=== PATIENT | female | born 1965 | race Caucasian/White ===

== ENCOUNTER 2017-12-26 17:56 | Emergency (ER) | payer OTHER ==
[~2017-12-26] VITALS: Ht 175.3 cm; Wt 101.6 kg
[2017-12-26 18:08] VITALS: Ht 175.3 cm; Wt 101.6 kg
[2017-12-26 18:52] LABS: microscopic required? NO
[2017-12-26 19:04] LABS: UA SPECIFIC GRAVITY 1.015 (1.005-1.035); urine erythrocyte NEGATIVE (NEGATIVE)
[2017-12-26 19:19] LABS: BASOPHIL % 0.7 % (0-2); PLATELET COUNT 269 x10^3mcL (130-400); RED CELL DISTRIBUTION WIDTH 13.7 % (11.5-14.5)
[2017-12-26 19:48] LABS: CALCIUM 8.7 mg/dL (8.5-10.1); CARBON DIOXIDE 30.5 mmol/L (21-32); CREATININE SERUM 1.2 mg/dL (0.6-1.0); POTASSIUM SERUM 3.5 mmol/L (3.5-5.1)
[2017-12-26 19:53] LABS: BILIRUBIN TOTAL 0.62 mg/dL (0.20-1.00); CHOLESTEROL/HDL RATIO 2.9; TOTAL PROTEIN, SERUM 7.7 g/dL (6.4-8.2)
[2017-12-26 19:55] LABS: T3 TOTAL 1.31 ng/mL
[2017-12-26 19:57] LABS: FREE T4 1.05 ng/dL (0.76-1.46); FREE THYROXINE INDEX 2.9 ug/dL (1.4-4.5); T4(THYROXINE) 9.2 ug/dL (4.7-13.3)
[2017-12-26 21:57] VITALS: BP 145/85
== END 2017-12-26 21:57 | disposition home or self-care (01) ==
LOC: ED 17:56
PROVIDERS: Specialist
DX: I10 Essential (primary) hypertension (principal); M54.2 Cervicalgia; M54.6 Pain in thoracic spine; F43.9 Reaction to severe stress, unspecified; Z88.1 Allergy status to other antibiotic agents
CPT/HCPCS: 83880; 84439; J3490; J7030; Q0092; Q9967

== ENCOUNTER 2018-05-14 17:12 | Emergency (ER) | payer OTHER ==
[~2018-05-14] VITALS: Ht 175.3 cm; Wt 105.7 kg
[2018-05-14 18:43] VITALS: BP 142/96
== END 2018-05-14 18:43 | disposition home or self-care (01) ==
LOC: ED 17:12
DX: F07.81 Postconcussional syndrome (principal); S20.219A Contusion of unspecified front wall of thorax, initial encounter; M54.6 Pain in thoracic spine; Y04.0XXA Assault by unarmed brawl or fight, initial encounter; Y93.89 Activity, other specified; Y92.89 Other specified places as the place of occurrence of the external cause; Y99.8 Other external cause status
CPT/HCPCS: J1885; Q0092; Q0162